=== PATIENT | female | born 1985 | race Caucasian/White ===

== ENCOUNTER 2019-07-02 20:10 | Emergency (ER) | payer SELFPAY ==
[~2019-07-02] VITALS: Ht 162.6 cm; Wt 88.9 kg
[2019-07-02 20:12] VITALS: BP 105/58
--- NOTE | 2019-07-02 20:15 | NUR ---
TO LOBBY A/W BED AMBULATORY
--- NOTE | 2019-07-02 21:00 | NUR ---
SITTING UP IN CHAIR, ASSESSMENT COMPLETED. PATIENT REPORTING FEVER, HEADACHES, N/V, SORE THROAT. STATES SHE LAST TOOK ADVIL AT 1900 FOR FEVER. THROAT RED AND SWOLLEN WITH WHITE PUSS POCKETS SEEN ON TONSILS. NO NVD TODAY BUT NV X1 YESTERDAY. ABD SOFT AND NON-TENDER. LUNGS CLEAR NO RESP DISTRESS. AAO. NO PMH.
[2019-07-02] MEDS ORDERED: PENICILLIN G BENZATHINE L-A 1.2 MU/2 ML SYR IM ONE (21:15)
[2019-07-02] MEDS ORDERED: KETOROLAC 30 MG/ML VIAL IM ONE (21:15)
[2019-07-02 21:38] VITALS: BP 108/61
--- NOTE | 2019-07-02 21:39 | NUR ---
Patient discharged with v/s stable. Written and verbal after care instructions given and explained. Patient alert, oriented and verbalized understanding of instructions. Ambulatory with steady gait. All questions addressed prior to discharge. ID band removed. Patient advised to follow up with PMD. Rx of PREDNISONE, MOTRIN given. Patient educated on indication of medication including possible reaction and side effects. Opportunity to ask questions provided and answered.
== END 2019-07-02 21:38 | disposition home or self-care (01) ==
LOC: MED 20:10
DX: J02.0 Streptococcal pharyngitis (principal); F17.210 Nicotine dependence, cigarettes, uncomplicated; Z98.84 Bariatric surgery status
CPT/HCPCS: 87081; 96372; 99283; J0561; J1885